=== PATIENT | female | born 1985 | race Asian ===

== ENCOUNTER 2017-05-31 12:47 | Emergency (ER) | payer SELFPAY ==
[~2017-05-31] VITALS: Ht 167.6 cm; Wt 65.0 kg
[~2017-05-31 12:47] MED LIST: ALBU17AE27 IH; FLUT1DIS IH
[2017-05-31] MEDS ORDERED: GuaiFENesin/D-METHORPHAN [SUGAR-FREE] 200-20MG/10 ML SYRUP UDCUP PO ONE (13:30)
[2017-05-31] MEDS ORDERED: IPRATROPIUM BROMIDE 0.5 MG/2.5 ML NEB SOLUTION NEB ONE (13:30)
[2017-05-31] MEDS ORDERED: ALBUTEROL SULFATE 2.5 MG/0.5 ML NEB SOLUTION NEB ONE (13:30)
[2017-05-31 14:25] VITALS: BP 121/77
== END 2017-05-31 14:52 | disposition home or self-care (01) ==
LOC: EMS 12:48
DX: J06.9 Acute upper respiratory infection, unspecified (principal); J45.909 Unspecified asthma, uncomplicated; F17.210 Nicotine dependence, cigarettes, uncomplicated
CPT/HCPCS: 94640; 99283; J7613

== ENCOUNTER 2022-05-18 19:22 | Emergency (ER) | payer MEDICAID ==
[~2022-05-18] VITALS: Ht 170.2 cm; Wt 72.7 kg
[~2022-05-18 19:22] MED LIST changes: -FLUT1DIS IH
[2022-05-18] MEDS ORDERED: PB/HYOSCY/ATR/SCOP/LIDO/MAALOX 55 ML BOTTLE PO ONE (21:30)
[2022-05-18 21:38] LABS: BASOPHILS % (AUTO) 0.2 % (0.0-2.0); EOSINOPHILS % (AUTO) 2.9 % (1.0-6.0); HEMATOCRIT 39.7 % (36-46); HEMOGLOBIN 13.1 g/dL (12.0-16.0); LYMPHOCYTES # (AUTO) 1.5 K/uL (1.0-4.8); LYMPHOCYTES % (AUTO) 15.8 % (22.0-44.0); MEAN CORPUSCULAR HEMOGLOBIN 31.9 pg (26.0-34.0); MEAN CORPUSCULAR VOLUME 97 fL (80-100); MONOCYTES # (AUTO) 0.3 K/uL (0.1-1.0); MONOCYTES % (AUTO) 2.9 % (2.0-9.0); NEUTROPHILS # (AUTO) 7.3 K/uL (1.8-7.7); NEUTROPHILS % (AUTO) 78.2 % (40.0-70.0); PLATELET COUNT (AUTO) 187 K/uL (150-450); RED CELL DISTRIBUTION WIDTH 13.5 % (11.5-14.5)
[2022-05-18 21:47] LABS: ANION GAP 7 mmol/L (8-16); CALCIUM, TOTAL 8.8 mg/dL (8.8-10.5); CARBON DIOXIDE 28 mmol/L (22-29); CHLORIDE 103 mmol/L (98-107); CREATININE 0.75 mg/dL (0.60-1.30); GLOMERULAR FILTR. RATE CALC > 60 mL/min (>60); GLUCOSE,RANDOM 112 mg/dL (70-110); POTASSIUM 3.5 mmol/L (3.5-5.1); SODIUM SERUM 138 mmol/L (136-145); UREA NITROGEN, BLOOD 8 mg/dL (7-18)
[2022-05-18 22:08] LABS: ALANINE AMINOTRANSFERASE 19 U/L (12-78); ALBUMIN 3.8 g/dL (3.4-5.0); ALKALINE PHOSPHATASE 56 U/L (46-116); ASPARTATE AMINOTRANSFERASE 17 U/L (15-37); BILIRUBIN,TOTAL 0.4 mg/dL (0.1-1.0); HCG,QUANTITATIVE < 1 mIU/mL (0-6); LIPASE 144 U/L (73-393); TOTAL PROTEIN, SERUM 7.1 g/dL (6.4-8.2)
[2022-05-18 22:59] VITALS: BP 143/45
[2022-05-18] MEDS ORDERED: OMEP20 PO (23:18)
== END 2022-05-19 05:51 | disposition home or self-care (01) ==
LOC: EMS 19:22
DX: R10.13 Epigastric pain (principal); K29.70 Gastritis, unspecified, without bleeding; F17.210 Nicotine dependence, cigarettes, uncomplicated; F12.10 Cannabis abuse, uncomplicated; J45.909 Unspecified asthma, uncomplicated; R51.9 Headache, unspecified; R07.9 Chest pain, unspecified
CPT/HCPCS: 80053; 83690; 84702; 85025; 99283